=== PATIENT | male | born 1930 | race Caucasian/White ===

== ENCOUNTER 2017-04-25 22:31 | Emergency (ER) | payer MEDICARE, BC ==
[2017-04-25 22:51] VITALS: BP 114/61; PULSE 62; RESP 18; TEMP 97.6
--- NOTE | 2017-04-25 23:59 | ED ---
Skin/Abscess/FB HPI - General Chief complaint: Skin/Abscess/Foreign Body Stated complaint: Cat Scratch Time Seen by Provider: 04/25/17 23:35 Source: patient, RN notes reviewed, old records reviewed Mode of arrival: ambulatory Limitations: no limitations - History of Present Illness Initial comments: Patient is a 86-year-old male presents emergency Department chief complaint of right hand laceration. She reports that he was playing with his barn cat in the barn cat scratched his hand. He reports that he continued to bleed and he was concerned as why he came to the emergency department. Patient is not on any blood thinners. He reports that he has 3 small lacerations over the dorsum of the hand. Denies any pain with range of motion. Denies any peripheral paresthesias. He does not know exactly when he had the last tetanus shot. He would like an updated today. - Related Data Previous Rx's Medication Instructions Recorded Cephalexin [Keflex] 500 mg PO Q8HR #21 cap 04/25/17 Allergies Allergy/AdvReac Type Severity Reaction Status Date / Time No Known Allergies Allergy Verified 04/25/17 22:51 Review of Systems ROS Statement: Those systems with pertinent positive or pertinent negative responses have been documented in the HPI. ROS Other: All systems not noted in ROS Statement are negative. Constitutional: Denies: as per HPI, fever, chills Eyes: Denies: eye pain ENT: Denies: ear pain, throat pain Respiratory: Denies: cough, dyspnea Cardiovascular: Denies: chest pain Endocrine: Denies: fatigue Gastrointestinal: Denies: abdominal pain Genitourinary: Denies: urgency Musculoskeletal: Reports: back pain Skin: Denies: rash Neurological: Denies: headache Psychiatric: Denies: anxiety, depression Hematological/Lymphatic: Reports: easy bleeding Past Medical History Past Medical History: Dementia, Hyperlipidemia, Hypertension History of Any Multi-Drug Resistant Organisms: None Reported Past Surgical History: No Surgical Hx Reported Past Psychological History: No Psychological Hx Reported Smoking Status: Never smoker Past Alcohol Use History: None Reported Past Drug Use History: None Reported General Exam - General Exam Comments Initial Comments: is a pleasant 86-year-old male. No acute distress. Limitations: no limitations General appearance: alert, in no apparent distress Head exam: Present: atraumatic, normocephalic, normal inspection Eye exam: Present: normal appearance, PERRL, EOMI. Absent: scleral icterus, conjunctival injection, periorbital swelling ENT exam: Present: normal exam, mucous membranes moist Neck exam: Present: normal inspection. Absent: tenderness, meningismus, lymphadenopathy Respiratory exam: Present: normal lung sounds bilaterally. Absent: respiratory distress, wheezes, rales, rhonchi, stridor Cardiovascular Exam: Present: regular rate, normal rhythm, normal heart sounds. Absent: systolic murmur, diastolic murmur, rubs, gallop, clicks GI/Abdominal exam: Present: soft, normal bowel sounds. Absent: distended, tenderness, guarding, rebound, rigid Extremities exam: Present: normal inspection, full ROM, normal capillary refill. Absent: tenderness, pedal edema, joint swelling, calf tenderness Right Hand Wrist exam: Present: full ROM, laceration. Absent: normal inspection, tenderness, swelling Hand L/R Back: 1 - 2cm laceration, bleeding well controlled. 2 - 1cm laceration, bleeding controlled. 3 - smalll puncture wound, no bleeding noted. Neuro motor exam: Present: wrist extension intact, thumb opposition intact, thumb IP flexion intact, thumb adduction intact, fingers 2-5 abduction intact Neurosensory exam: Present: 2-point discrimination, radial nerve intact, ulnar nerve intact, median nerve intact Vascular: Present: normal capillary refill Back exam: Present: normal inspection Neurological exam: Present: alert, oriented X3, CN II-XII intact Psychiatric exam: Present: normal affect, normal mood Skin exam: Present: warm, dry, intact, normal color. Absent: rash Course Vital Signs 04/25/17 22:47 Temperature 97.6 F Pulse Rate 62 Respiratory 18 Rate Blood Pressure 114/61 O2 Sat by Pulse 97 Oximetry Procedures - Laceration Laceration #2 Site: hand (dorsum right hand) Size (cm): 2 Description: flap Depth: simple, single layer Pre-repair: wound explored, irrigated extensively Type of Sutures: other (steristrip) Number of Sutures: 3 Patient Tolerated Procedure: well, no complications Medical Decision Making - Medical Decision Making Patient is a 86-year-old male presents emergency Department chief complaint of right hand laceration. She reports that he was playing with his barn cat in the barn cat scratched his hand. He reports that he continued to bleed and he was concerned as why he came to the emergency department. At this time patient has a 2 cm skin tear wound that was throughouly irrigated with saline and iodine. Wound was then closed with 2 steri strips. Discussed that I do not want to entirely close the wound as there can be concern for infection. Also a second 1cm laceration was closed with 1 steri strip. Patient hand was wrapped with gauze. Bleeding has stopped. Patient will be started on keflex as concern that this was a dirty wound. Patient understands signs and symtpoms for cat scratch disease and to monitor for infection. REturn parameters discussed. Disposition Clinical Impression: Cat scratch of hand Disposition: HOME SELF-CARE Condition: Good Instructions: Laceration (ED) Additional Instructions: Patient advised to keep the wound covered for the next 24 hours. Allow the Steri-Strips to come off on her own. Return to the emergency department if any alarming signs or symptoms occur. Prescriptions: Cephalexin [Keflex] 500 mg PO Q8HR #21 cap Referrals: Collin Ness MD [Primary Care Provider] - 1-2 days Time of Disposition: 23:57
[2017-04-26] MEDS ORDERED: DIPH,PERTUS(ACELL)TETVAC-LF 0.5 ML VIAL IM ONE (00:15)
== END 2017-04-26 01:10 | disposition home or self-care (01) ==
LOC: EC 22:31
DX: S61.411A Laceration without foreign body of right hand, initial encounter (principal); Z23 Encounter for immunization; W55.03XA Scratched by cat, initial encounter; Y93.89 Activity, other specified
CPT/HCPCS: 12002; 90471; 90715; 99283